=== PATIENT | female | born 1975 | race African-American/Black ===

== ENCOUNTER 2020-09-07 04:11 | Emergency (ER) | payer MEDICAID ==
[~2020-09-07] VITALS: Ht 160 cm; Wt 65.0 kg
[2020-09-07] MEDS ORDERED: FENTANYL CITRATE/PF 50MCG/ML 1ML VIAL IV NR (04:30)
[2020-09-07] MEDS ORDERED: TETANUS, DIPHTHERIA, PERTUSSIS VAC/PF 0.5ML (>7YR OLD) IM ONE (04:45)
[2020-09-07 05:07] LABS: BASOPHILS % 1.1 % (0.0-2.0); EOSINOPHILS % 1.1 % (0.0-5.0); HEMATOCRIT. 34.7 % (36.0-48.0); HEMOGLOBIN. 11.3 g/dL (12.0-16.0); LYMPHOCYTES % 38.1 % (20.0-50.0); MEAN CORPUSCULAR HEMOGLOBIN 30.5 pg (28.0-32.0); MEAN CORPUSCULAR VOLUME 93.6 fL (81.0-99.0); MEAN PLATELET VOLUME 8.1 fl (7.4-10.4); MONOCYTES % 9.5 % (2.0-8.0); NEUTROPHILS % 50.2 % (40.0-76.0); PLATELET 317 x1000/uL (130-400); RED BLOOD CELL COUNT 3.71 mill/uL (4.2-5.4); RED CELL DISTRIBUTION WIDTH 17.5 % (11.6-14.6)
[2020-09-07 05:17] LABS: CHLORIDE 103 mEq/L (98-107)
[2020-09-07 05:22] LABS: PROTHROMBIN TIME 10.9 sec (9.6-11.0)
[2020-09-07 05:41] LABS: ETHANOL BLOOD 364 mg/dL
[2020-09-07] MEDS ORDERED: KCL 10MEQ/50ML PREMIX 50 ML IV ONE (05:45)
[2020-09-07 10:43] VITALS: BP 108/70
== END 2020-09-07 10:42 | disposition home or self-care (01) ==
LOC: ER 05:00
DX: S01.01XA Laceration without foreign body of scalp, initial encounter (principal); J45.909 Unspecified asthma, uncomplicated; F12.10 Cannabis abuse, uncomplicated; R51.9 Headache, unspecified; F17.200 Nicotine dependence, unspecified, uncomplicated; I49.9 Cardiac arrhythmia, unspecified; Y08.89XA Assault by other specified means, initial encounter; Y93.89 Activity, other specified; Y92.89 Other specified places as the place of occurrence of the external cause; Y99.8 Other external cause status
CPT/HCPCS: 12002; 36415; 70450; 70486; 71045; 72128; 80053; 80320; 84484; 85025; 85610; 86850; 86900; 86901; 90471; 90715; 93005; 96365; 96375; 99285; J3010; J3480; G0480

== ENCOUNTER 2020-09-18 10:20 | Emergency (ER) | payer MEDICAID ==
[~2020-09-18] VITALS: Ht 162.6 cm; Wt 61.0 kg
[2020-09-18 11:19] VITALS: BP 130/79
== END 2020-09-18 11:20 | disposition home or self-care (01) ==
LOC: ER 10:20
DX: Z48.02 Encounter for removal of sutures (principal)
CPT/HCPCS: 99281

== ENCOUNTER 2021-01-20 17:19 | Emergency (ER) | payer MEDICAID ==
[~2021-01-20] VITALS: Ht 162.6 cm; Wt 62.0 kg
[2021-01-20] MEDS ORDERED: HYDROCODONE/ACETAMINOPHEN 5/325MG TABLET PO STA (18:10)
[2021-01-20 18:23] VITALS: BP 123/81
[2021-01-20] MEDS ORDERED: IBUP-2029 MT (19:24)
== END 2021-01-20 19:43 | disposition home or self-care (01) ==
LOC: ER 17:19
DX: M79.641 Pain in right hand (principal); M25.531 Pain in right wrist; M79.644 Pain in right finger(s)
CPT/HCPCS: 29125; 73110; 73130; 99284

== ENCOUNTER 2024-01-05 12:25 | Inpatient (IN) | payer MEDICAID, OTHER ==
[~2024-01-05] VITALS: Ht 165.1 cm; Wt 31.8 kg
[~2024-01-05 12:25] MED LIST: IBUP-2029 MT
[2024-01-05 12:29] VITALS: O2SAT 95
[2024-01-05] MEDS: ACETAMINOPHEN 325MG TABLET PO STA (12:41)
[2024-01-05] MEDS: ONDANSETRON HCL 4MG/2ML INJ IV STA (12:41)
[2024-01-05 13:04] LABS: HEMOGLOBIN. 12.3 g/dL (12.0-16.0); MEAN CORPUSCULAR HEMOGLOBIN 27.8 pg (28.0-32.0); MEAN CORPUSCULAR HGB CONC 32.5 g/dL (31.0-37.0); MEAN CORPUSCULAR VOLUME 85.7 fL (81.0-99.0); MEAN PLATELET VOLUME 8.7 fl (7.4-10.4); PLATELET 236 x1000/uL (130-400); RED BLOOD CELL COUNT 4.44 mill/uL (4.2-5.4); RED CELL DISTRIBUTION WIDTH 19.3 % (11.6-14.6); WHITE BLOOD COUNT 18.6 x1000/uL (4.5-11.0)
[2024-01-05 13:10] LABS: DIFFERENTIAL COMMENT 1
[2024-01-05 13:13] LABS: CALCIUM 10.5 mg/dL (8.7-10.4); CARBON DIOXIDE 13 mEq/L (21-32); CHLORIDE 100 mEq/L (98-107); SODIUM 125 mEq/L (136-145)
[2024-01-05 13:16] LABS: PROTHROMBIN TIME 11.5 sec (9.6-11.0)
[2024-01-05 13:18] LABS: CREATININE 3.1 mg/dL (0.6-1.0); GLUCOSE 122 mg/dL (70-105)
[2024-01-05 13:20] LABS: ALANINE AMINOTRANSFERASE 24 IU/L (10-49); ALBUMIN 4.8 g/dL (3.2-4.8); ASPARTATE AMINOTRANSFERASE 20 IU/L (<34); BILIRUBIN DIRECT 0.2 mg/dL (<=3.0)
[2024-01-05 13:21] LABS: BILIRUBIN TOTAL 0.5 mg/dL (0.1-1.0); PROTEIN TOTAL 8.5 g/dL (6.0-8.3)
[2024-01-05 13:31] LABS: NUCLEATED RED BLOOD CELLS 1 /100 WBC
[2024-01-05 13:33] LABS: ANISOCYTOSIS 2+; PLATELET ESTIMATE NORMAL
[2024-01-05] MEDS ORDERED: LIDOCAINE HCL 1% 10 MG/ML 10ML VIAL ONE (13:49)
[2024-01-05] MEDS: CEFTRIAXONE 1GM/50ML 50 ML IV ONE (13:54)
[2024-01-05] MEDS: SODIUM CHLORIDE 0.9% 1,000 ML IV ONE ×2 (13:54→14:21)
[2024-01-05] MEDS: SODIUM CHLORIDE 0.9% 1000ML BAG (SEPSIS BOLUS) IV ONE (13:54)
[2024-01-05 13:55] LABS: UREA NITROGEN BLOOD 112 mg/dL (9-23)
[2024-01-05 13:56] LABS: TROPONIN I HIGH SENSITIVITY 99 ng/L (3.0-34)
[2024-01-05] MEDS: METRONIDAZOLE 500 MG PREMIX 100 ML IV ONE (14:04)
[2024-01-05] MEDS ORDERED: HEPARIN 1000 UNITS/ML 10ML ONE (14:14)
[2024-01-05 15:23] LABS: TROPONIN I HIGH SENSITIVITY 78 ng/L (3.0-34)
[2024-01-05] MEDS ORDERED: CLONIDINE 0.1MG TABLET PO PRN (17:30)
[2024-01-05] MEDS ORDERED: GUAIFENESIN 200MG/10ML SUGAR FREE UDC PO PRN (17:30)
[2024-01-05] MEDS ORDERED: IPRATROPIUM/ALBUTEROL 0.5-3(2.5)MG/3ML NEB NEB PRN (17:30)
[2024-01-05] MEDS ORDERED: DOCUSATE SODIUM 100MG CAPSULE PO PRN (17:30)
[2024-01-05] MEDS ORDERED: NITROGLYCERIN 0.4MG TABLET SL SL PRN (17:30)
[2024-01-05] MEDS ORDERED: MAGNESIUM/ALUMINUM HYDROXIDE/SIMETHICONE 30ML UDC PO PRN (17:30)
[2024-01-05] MEDS ORDERED: ONDANSETRON HCL 4MG/2ML INJ IV PRN (17:30)
[2024-01-05 17:54] LABS: IRON 32 ug/dL (50-170)
[2024-01-05 17:55] LABS: TRIGLYCERIDE 147 mg/dL (0-150)
[2024-01-05 17:56] LABS: LDL CHOLESTEROL 104 mg/dL (5-100)
[2024-01-05 17:57] LABS: CHOLESTEROL 151 mg/dL (<200); HDL CHOLESTEROL 28 mg/dL (>65)
[2024-01-05 17:59] LABS: FOLIC ACID (FOLATE) SERUM 5.92 ng/mL (>5.38); VITAMIN B12 SERUM 896 pg/mL (211-911)
[2024-01-05 18:00] VITALS: BP 117/85; PULSE 93; RESP 18; TEMP 36.418
[2024-01-05 18:00] LABS: T4 FREE 1.23 ng/dL (0.89-1.76); THYROID STIMULATING HORMONE 3.06 uIU/mL (0.55-4.78)
[2024-01-05] MEDS: ZINC SULFATE 220 MG ( 50 ) CAPSULE PO SCH (18:00)
[2024-01-05] MEDS: LACTATED RINGERS 1,000 ML IV SCH (18:00)
[2024-01-05 18:07] LABS: TOTAL IRON BINDING CAPACITY > 670 ug/dl (250-425)
[2024-01-05 18:41] VITALS: BP 117/85; PULSE 93; RESP 18; TEMP 36.3918
[2024-01-05 20:00] VITALS: BP 108/76; PULSE 59; RESP 18; TEMP 35.89176; O2SAT 83
[2024-01-05] MEDS: ENOXAPARIN 30MG/0.3ML SYR SUBCUT SCH (20:19)
[2024-01-05] MEDS: MEROPENEM 1G/100ML 100 ML IV SCH (20:19)
[2024-01-05] MEDS: ACETAMINOPHEN 325MG TABLET PO PRN (20:31)
[2024-01-05] MEDS ORDERED: SERT50TA PO (20:39)
[2024-01-05] MEDS ORDERED: PRAZ2CAP2 PO (20:41)
[2024-01-05] MEDS: ASCORBIC ACID 500 MG TABLET PO SCH (21:58)
[2024-01-05] MEDS: VANCOMYCIN 1GM/200ML PMX (BAXTER) IV NR (21:58)
[2024-01-05] MEDS: FAMOTIDINE 20MG TABLET PO SCH (21:58)
[2024-01-06] VITALS: BP 102/75; PULSE 90; RESP 18; TEMP 36.72516; O2SAT 100
[2024-01-06] MEDS: ACETAMINOPHEN 325MG TABLET PO PRN (00:29)
[2024-01-06 04:00] VITALS: BP 100/71; PULSE 92; RESP 19; TEMP 36.44736; O2SAT 100
[2024-01-06 07:29] LABS: CHLORIDE 107 mEq/L (98-107); POTASSIUM 3.5 mEq/L (3.5-5.1); SODIUM 131 mEq/L (136-145)
[2024-01-06 07:32] LABS: CALCIUM 9.1 mg/dL (8.7-10.4); CARBON DIOXIDE 11 mEq/L (21-32)
[2024-01-06 07:37] LABS: ALANINE AMINOTRANSFERASE 12 IU/L (10-49); CREATININE 2.5 mg/dL (0.6-1.0); GLUCOSE 80 mg/dL (70-105); UREA NITROGEN BLOOD 82 mg/dL (9-23)
[2024-01-06 07:38] LABS: CREATINE KINASE MB FRACTION 10.4 ng/mL (0.5-3.6)
[2024-01-06 07:39] LABS: ALBUMIN 3.6 g/dL (3.2-4.8); ASPARTATE AMINOTRANSFERASE 13 IU/L (<34); BILIRUBIN TOTAL 0.4 mg/dL (0.1-1.0); PHOSPHORUS 3.9 mg/dL (2.5-4.9); PROTEIN TOTAL 6.8 g/dL (6.0-8.3)
[2024-01-06 07:42] LABS: HEMOGLOBIN. 10.4 g/dL (12.0-16.0); MEAN CORPUSCULAR HEMOGLOBIN 28.4 pg (28.0-32.0); MEAN CORPUSCULAR HGB CONC 32.3 g/dL (31.0-37.0); MEAN CORPUSCULAR VOLUME 87.9 fL (81.0-99.0); MEAN PLATELET VOLUME 8.9 fl (7.4-10.4); PLATELET 200 x1000/uL (130-400); RED BLOOD CELL COUNT 3.64 mill/uL (4.2-5.4); RED CELL DISTRIBUTION WIDTH 18.5 % (11.6-14.6); WHITE BLOOD COUNT 14.7 x1000/uL (4.5-11.0)
[2024-01-06 07:56] LABS: DIFFERENTIAL COMMENT 1
[2024-01-06 08:00] VITALS: BP 103/75; PULSE 97; RESP 20; TEMP 36.6696; O2SAT 98
[2024-01-06 12:00] VITALS: BP 100/76; PULSE 86; RESP 16; TEMP 36.61404; O2SAT 100
[2024-01-06] MEDS: MEROPENEM 500MG/50ML IV SCH (15:51)
[2024-01-06 16:00] VITALS: BP 93/63; PULSE 93; RESP 19; TEMP 35.89176; O2SAT 95
[2024-01-06 16:52] LABS: ANISOCYTOSIS 1+; PLATELET ESTIMATE NORMAL
[2024-01-06 20:00] VITALS: BP 97/72; PULSE 103; RESP 20; TEMP 36.55848; O2SAT 100
[2024-01-07] VITALS: BP 100/68; PULSE 99; RESP 19; TEMP 36.6696; O2SAT 100
[2024-01-07] MEDS: ZOLPIDEM TARTRATE 5MG TABLET PO PRN (03:09)
[2024-01-07 04:00] VITALS: BP 99/74; PULSE 90; RESP 18; TEMP 36.44736; O2SAT 100
[2024-01-07 08:00] VITALS: BP 97/74; PULSE 68; RESP 18; TEMP 36.00288; O2SAT 95
[2024-01-07 12:00] VITALS: BP 100/74; PULSE 89; RESP 18; TEMP 36.114; O2SAT 97
[2024-01-07 16:00] VITALS: BP 103/73; PULSE 82; RESP 18; TEMP 36.22512; O2SAT 97
[2024-01-07 16:28] LABS: HEMATOCRIT. 29.9 % (36.0-48.0); HEMOGLOBIN. 9.7 g/dL (12.0-16.0); MEAN CORPUSCULAR HEMOGLOBIN 28.1 pg (28.0-32.0); MEAN CORPUSCULAR HGB CONC 32.4 g/dL (31.0-37.0); MEAN CORPUSCULAR VOLUME 86.7 fL (81.0-99.0); PLATELET 250 x1000/uL (130-400); RED BLOOD CELL COUNT 3.45 mill/uL (4.2-5.4); RED CELL DISTRIBUTION WIDTH 18.9 % (11.6-14.6); WHITE BLOOD COUNT 13.9 x1000/uL (4.5-11.0)
[2024-01-07 16:29] LABS: DIFFERENTIAL COMMENT 1
[2024-01-07 16:44] LABS: CALCIUM 9.1 mg/dL (8.7-10.4)
[2024-01-07 16:48] LABS: CREATININE 1.8 mg/dL (0.6-1.0)
[2024-01-07] MEDS: CEFAZOLIN 1000MG PREMIX 50 ML IV SCH (17:18)
[2024-01-07 20:00] VITALS: BP 93/89; PULSE 93; RESP 20; TEMP 36.3918; O2SAT 100
[2024-01-07 22:43] LABS: ANISOCYTOSIS 1+; PLATELET ESTIMATE NORMAL
[2024-01-08] VITALS: BP 94/60; PULSE 94; RESP 20; TEMP 36.33624; O2SAT 100
[2024-01-08 04:00] VITALS: BP 83/52; PULSE 84; RESP 18; RESP 20; TEMP 36.28068; O2SAT 100
[2024-01-08 06:09] LABS: POTASSIUM 3.4 mEq/L (3.5-5.1)
[2024-01-08 06:10] LABS: CALCIUM 9.1 mg/dL (8.7-10.4)
[2024-01-08 06:12] LABS: BASOPHILS % 0.4 % (0.0-2.0); EOSINOPHILS % 0.5 % (0.0-5.0); HEMATOCRIT. 28.6 % (36.0-48.0); HEMOGLOBIN. 9.4 g/dL (12.0-16.0); LYMPHOCYTES % 8.3 % (20.0-50.0); MEAN CORPUSCULAR HEMOGLOBIN 28.4 pg (28.0-32.0); MEAN CORPUSCULAR HGB CONC 32.8 g/dL (31.0-37.0); MEAN CORPUSCULAR VOLUME 86.6 fL (81.0-99.0); MEAN PLATELET VOLUME 8.8 fl (7.4-10.4); MONOCYTES % 8.4 % (2.0-8.0); NEUTROPHILS % 82.4 % (40.0-76.0); PLATELET 236 x1000/uL (130-400); RED CELL DISTRIBUTION WIDTH 19.2 % (11.6-14.6); WHITE BLOOD COUNT 11.1 x1000/uL (4.5-11.0)
[2024-01-08 06:15] LABS: CREATININE 1.3 mg/dL (0.6-1.0)
[2024-01-08 08:09] VITALS: BP 98/65; PULSE 85; RESP 18; TEMP 36.9474; O2SAT 100
[2024-01-08] MEDS: POTASSIUM CHLORIDE 20MEQ TABLET SR PO NR (12:15)
[2024-01-08 13:00] VITALS: BP 95/63; PULSE 83; RESP 18; TEMP 36.22512; O2SAT 99
[2024-01-08] MEDS: CEFTRIAXONE 1GM/50ML 50 ML IV SCH (15:30)
[2024-01-08 16:00] VITALS: BP 95/63; PULSE 84; RESP 18; TEMP 36.22512; O2SAT 100
[2024-01-08 20:00] VITALS: BP 94/69; RESP 18; TEMP 36.50292; O2SAT 100
[2024-01-09] VITALS: BP 89/60; PULSE 96; RESP 20; TEMP 36.6696; O2SAT 99
[2024-01-09 08:07] VITALS: BP 101/75; PULSE 116; RESP 18; TEMP 35.5584; O2SAT 98
[2024-01-09 12:00] VITALS: BP 107/54; PULSE 123; RESP 18; TEMP 36.22512; O2SAT 99
[2024-01-09 16:18] VITALS: BP 90/5; PULSE 108; RESP 18; TEMP 36.6696; O2SAT 100
[2024-01-09] MEDS: CEFTRIAXONE 2GM/50ML 50ML IV SCH (17:32)
[2024-01-09 20:00] VITALS: BP 110/75; PULSE 110; RESP 18; TEMP 36.16956; O2SAT 95
[2024-01-10 04:00] VITALS: BP 85/58; PULSE 103; RESP 18; TEMP 36.3918; O2SAT 95
[2024-01-10 08:00] VITALS: BP 95/62; PULSE 96; RESP 19; TEMP 36.78072; O2SAT 100
[2024-01-10 12:00] VITALS: BP 93/61; PULSE 96; RESP 20; TEMP 36.22512; O2SAT 99
[2024-01-10 16:00] VITALS: BP 93/58; PULSE 104; RESP 20; TEMP 36.28068; O2SAT 97
[2024-01-10 20:00] VITALS: BP 106/73; PULSE 61; RESP 18; TEMP 36.3918; O2SAT 90
[2024-01-11] VITALS: BP 93/69; PULSE 81; RESP 18; TEMP 36.16956; O2SAT 100
[2024-01-11 07:44] LABS: BASOPHILS % 0.6 % (0.0-2.0); EOSINOPHILS % 0.5 % (0.0-5.0); HEMATOCRIT. 27.8 % (36.0-48.0); LYMPHOCYTES % 12.5 % (20.0-50.0); MEAN CORPUSCULAR HEMOGLOBIN 28.4 pg (28.0-32.0); MEAN CORPUSCULAR HGB CONC 32.5 g/dL (31.0-37.0); MEAN CORPUSCULAR VOLUME 87.3 fL (81.0-99.0); MEAN PLATELET VOLUME 8.1 fl (7.4-10.4); MONOCYTES % 8.3 % (2.0-8.0); NEUTROPHILS % 78.1 % (40.0-76.0); PLATELET 238 x1000/uL (130-400); RED BLOOD CELL COUNT 3.18 mill/uL (4.2-5.4)
[2024-01-11 07:45] LABS: CARBON DIOXIDE 17 mEq/L (21-32); CHLORIDE 108 mEq/L (98-107); POTASSIUM 3.5 mEq/L (3.5-5.1); SODIUM 136 mEq/L (136-145)
[2024-01-11 07:46] LABS: CALCIUM 9.1 mg/dL (8.7-10.4)
[2024-01-11 07:51] LABS: CREATININE 0.9 mg/dL (0.6-1.0); GLUCOSE 76 mg/dL (70-105); UREA NITROGEN BLOOD 27 mg/dL (9-23)
[2024-01-11 08:00] VITALS: BP 99/69; PULSE 64; RESP 18; TEMP 36.50292; O2SAT 95
[2024-01-11 12:00] VITALS: BP 94/69; PULSE 60; RESP 19; TEMP 36.22512; O2SAT 99
[2024-01-11 16:00] VITALS: BP 94/59; PULSE 75; RESP 16; TEMP 36.28068; O2SAT 97
[2024-01-11 20:00] VITALS: BP 99/64; PULSE 104; RESP 18; TEMP 36.44736; O2SAT 100
[2024-01-11 22:06] VITALS: BP 99/64; PULSE 104; RESP 18; TEMP 36.44736; O2SAT 100
[2024-01-12] VITALS: BP 91/67; PULSE 101; RESP 18; TEMP 36.61404
[2024-01-12 04:00] VITALS: BP 96/60; PULSE 105; RESP 18; TEMP 36.33624; O2SAT 100
[2024-01-12 08:00] VITALS: BP 103/72; PULSE 99; RESP 20; TEMP 36.3918; O2SAT 100
[2024-01-12 12:00] VITALS: BP 100/71; PULSE 105; RESP 20; TEMP 36.3918; O2SAT 99
[2024-01-12 16:00] VITALS: BP 101/73; PULSE 105; RESP 20; TEMP 36.44736; O2SAT 98
[2024-01-12 20:00] VITALS: BP 98/68; PULSE 105; RESP 18; TEMP 36.05844; O2SAT 100
[2024-01-13] VITALS: BP_SYST 90; BP_SYST 95; BP_DIAS 62; BP_DIAS 64; PULSE 109; PULSE 113; RESP 18; TEMP 36.50292; O2SAT 100
[2024-01-13 04:00] VITALS: BP 95/62; PULSE 109; RESP 18; TEMP 36.50292; O2SAT 100
[2024-01-13 08:00] VITALS: BP 98/73; PULSE 109; RESP 19; TEMP 36.50292; O2SAT 100
[2024-01-13 12:00] VITALS: BP 94/70; PULSE 82; RESP 16; TEMP 36.55848; O2SAT 97
[2024-01-13 16:00] VITALS: BP 100/71; PULSE 113; RESP 20; TEMP 36.83628; O2SAT 100
[2024-01-13 20:00] VITALS: BP 92/73; PULSE 115; RESP 18; TEMP 36.44736; O2SAT 91
[2024-01-14] VITALS: BP 99/69; PULSE 123; RESP 18; TEMP 36.44736; O2SAT 100
[2024-01-14 04:00] VITALS: BP 94/69; PULSE 54; RESP 18; TEMP 36.3918
[2024-01-14 08:00] VITALS: BP 90/64; PULSE 113; RESP 16; TEMP 36.28068; O2SAT 97
[2024-01-14 12:00] VITALS: BP 92/69; PULSE 60; RESP 18; TEMP 36.55848; O2SAT 100
== END 2024-01-14 15:00 | disposition left against medical advice (07) | DRG 720 ==
LOC: ER 12:25 → EDBEDREQ 13:14 → 6WST 16:00 → EDBEDREQ 16:17
PROVIDERS: ADMIT Internal Medicine; ATTEND Internal Medicine
PROC: 02HV33Z Insertion of Infusion Device into Superior Vena Cava, Percutaneous Approach (ICD-10-PCS; principal; 2024-01-05)
DX: A41.51 Sepsis due to Escherichia coli [E. coli] (principal); N17.0 Acute kidney failure with tubular necrosis; I21.A1 Myocardial infarction type 2; E87.20 Acidosis, unspecified; E87.1 Hypo-osmolality and hyponatremia; D64.9 Anemia, unspecified; E83.52 Hypercalcemia; R64 Cachexia; Z68.1 Body mass index [BMI] 19.9 or less, adult; E86.0 Dehydration; J45.909 Unspecified asthma, uncomplicated; M48.02 Spinal stenosis, cervical region; N39.0 Urinary tract infection, site not specified; Z53.29 Procedure and treatment not carried out because of patient's decision for other reasons; N18.9 Chronic kidney disease, unspecified; Z16.23 Resistance to quinolones and fluoroquinolones; Z93.3 Colostomy status; Z90.710 Acquired absence of both cervix and uterus; G95.20 Unspecified cord compression
CPT/HCPCS: 36415; 36556; 71045; 72141; 72146; 72148; 74176; 76937; 80048; 80053; 80061; 80076; 80202; 82550; 82553; 82607; 82746; 82962; 83036; 83540; 83550; 83605; 83735; 84100; 84145; 84439; 84443; 84484; 85025; 87077; 87186; 93005; 93306; 93970; 99291; A6261; C1725; C1893; J0690; J0696; J1642; J1644; J1650; J2185; J2405; J3370; J3490; J7030; J7120